=== PATIENT | male | born 1955 | race Caucasian/White ===

== ENCOUNTER → 2016-07-16 | Outpatient (CLI) | payer OTHER ==
[2016-07-16 09:36] LABS: HEMOGLOBIN 13.6 gm/dl (14.0-17.5); RED BLOOD COUNT 4.5 M/UL (4.20-5.50); WHITE BLOOD COUNT 7.1 K/UL (4.5-11.0)
[2016-07-16 09:54] LABS: BUN/CREATININE RATIO 11 (0-10)
== END ==
LOC: LAB 08:03
PROVIDERS: Nurse Practitioner
DX: I25.10 Atherosclerotic heart disease of native coronary artery without angina pectoris (principal); E11.9 Type 2 diabetes mellitus without complications; E78.5 Hyperlipidemia, unspecified; I10 Essential (primary) hypertension
CPT/HCPCS: 36415; 80053; 80061; 82043; 82570; 85025

== ENCOUNTER → 2020-08-03 | Outpatient (CLI) | payer OTHER ==
[2020-08-03 11:54] LABS: BUN/CREATININE RATIO 16 (0-10)
[2020-08-03 12:00] LABS: HEMOGLOBIN 14.7 gm/dl (14.0-17.5); RED BLOOD COUNT 4.82 M/UL (4.20-5.50); WHITE BLOOD COUNT 6.4 K/UL (4.5-11.0)
[2020-08-04 10:14] LABS: CREATININE, URINE 58.7 mg/dL (Not Estab.)
== END ==
LOC: LAB 09:14
PROVIDERS: Nurse Practitioner
DX: E11.9 Type 2 diabetes mellitus without complications (principal); Z12.5 Encounter for screening for malignant neoplasm of prostate
CPT/HCPCS: 36415; 80053; 80061; 82043; 82570; 83036; 84153; 84443; 85025

== ENCOUNTER → 2021-06-18 | Outpatient (CLI) | payer OTHER ==
[2021-06-18 09:00] LABS: HEMOGLOBIN 15.7 gm/dl (14.0-17.5); WHITE BLOOD COUNT 8.1 K/UL (4.5-11.0)
[2021-06-18 09:26] LABS: BUN/CREATININE RATIO 16 (0-10)
[2021-06-19 14:14] LABS: CREATININE, URINE 134.8 mg/dL (Not Estab.)
== END ==
LOC: LAB 08:22
PROVIDERS: Nurse Practitioner
DX: Z12.5 Encounter for screening for malignant neoplasm of prostate (principal); E11.9 Type 2 diabetes mellitus without complications; E55.9 Vitamin D deficiency, unspecified
CPT/HCPCS: 36415; 80053; 80061; 82043; 82570; 83036; 84153; 84443; 85025